=== PATIENT | female | born 1975 | race Caucasian/White ===

== ENCOUNTER → 2021-09-25 | Outpatient (CLI) | payer OTHER ==
[2021-09-25 18:48] LABS: BASOPHILS ABSOLUTE AUTO 0.03 K/mm3 (0.00-0.23); BASOPHILS PERCENT AUTO 1 % (0-2); EOSINOPHILS ABSOLUTE AUTO 0.08 K/mm3 (0.00-0.68); EOSINOPHILS PERCENT AUTO 1 % (0-6); Hematocrit 46.2 % (33.0-51.0); Hemoglobin 15.5 g/dL (11.5-16.0); IMMATURE GRAN ABSOLUTE AUTO 0.01 K/mm3 (0.00-0.10); IMMATURE GRAN PERCENT AUTO 0 % (0-1); LYMPHOCYTES ABSOLUTE AUTO 1.75 K/mm3 (0.84-5.20); LYMPHOCYTES PERCENT AUTO 30 % (21-46); MONOCYTES ABSOLUTE AUTO 0.84 K/mm3 (0.16-1.47); MONOCYTES PERCENT AUTO 15 % (4-13); Mean Corpuscular HGB 27.8 pg (26.0-34.0); Mean Corpuscular HGB Conc 33.5 g/dL (31.5-36.5); Mean Corpuscular Volume 83 fL (80-100); Mean Platelet Volume 9.8 fL (9.1-12.4); NEUTROPHILS ABSOLUTE AUTO 3.07 K/mm3 (1.96-9.15); NEUTROPHILS PERCENT AUTO 53 % (41-73); Platelet Count 300 K/mm3 (150-400); RDW Coefficient Variation 13.7 % (11.7-14.2); RDW Standard Deviation 41.2 fL (35.1-46.3); Red Blood Cell Count 5.57 M/mm3 (3.80-5.20); White Blood Cell Count 5.78 K/mm3 (4.00-11.30)
[2021-09-25 18:57] LABS: Anion Gap 10 mmol/L (6-16); Blood Urea Nitrogen 8 mg/dL (8-24); Bun/Creatinine Ratio 9.5 (12.0-20.0); CO2, Blood 27 mmol/L (21-32); Calcium, Blood 8.9 mg/dL (8.5-10.1); Chloride, Blood 99 mmol/L (98-108); Creatinine, Blood 0.84 mg/dL (0.40-1.00); Glomerular Filtration Rate >60 (60-); Glucose, Blood 97 mg/dL (70-99); Potassium, Blood 3.7 mmol/L (3.5-5.5); Sodium, Blood 136 mmol/L (136-145)
== END | disposition home or self-care (01) ==
LOC: LAB SHORT 18:45
PROVIDERS: Physician Assistant Surgical
DX: R07.89 Other chest pain (principal)
CPT/HCPCS: 80048; 84484; 85025; 85379

== ENCOUNTER 2022-06-14 14:45 | Emergency (ER) | payer OTHER ==
[~2022-06-14] VITALS: Ht 160 cm; Wt 94.8 kg
[2022-06-14] MEDS ORDERED: Hydroxyzine HCl50 MG (16:31)
== END 2022-06-14 15:52 | disposition home or self-care (01) ==
LOC: ER 14:45
DX: S20.212A Contusion of left front wall of thorax, initial encounter (principal); X50.1XXA Overexertion from prolonged static or awkward postures, initial encounter; Z88.0 Allergy status to penicillin; Z88.8 Allergy status to other drugs, medicaments and biological substances; Z88.1 Allergy status to other antibiotic agents; Z91.041 Radiographic dye allergy status
CPT/HCPCS: 71101

== ENCOUNTER → 2023-05-13 | Outpatient (CLI) | payer OTHER ==
[~2023-05-13] MED LIST: Hydroxyzine HCl50 MG
[2023-05-13 20:18] LABS: Campylobacter Sp Not Detected (NOT DETECT)
[2023-05-13 20:19] LABS: Adenovirus F 40/41 Not Detected (NOT DETECT); Astrovirus Not Detected (NOT DETECT); Cryptosporidium Not Detected (NOT DETECT); Cyclospora Cayetanensis Not Detected (NOT DETECT); E. Coli O157 Not Detected (NOT DETECT); Entamoeba Histolytica Not Detected (NOT DETECT); Enteroaggregative E. coli-EAEC Not Detected (NOT DETECT); Enteropathogenic E. coli-EPEC Not Detected (NOT DETECT); Enterotoxigenic E. coli-ETEC Not Detected (NOT DETECT); Giardia Lamblia Not Detected (NOT DETECT); Norovirus GI/GII Not Detected (NOT DETECT); Plesiomonas Shigelloides Not Detected (NOT DETECT); Rotavirus A Not Detected (NOT DETECT); Salmonella Sp Not Detected (NOT DETECT); Sapovirus Not Detected (NOT DETECT); Shiga Toxin-prod E. coli-STEC Not Detected (NOT DETECT); Shigella/Enteroin E. coli-EIEC Not Detected (NOT DETECT); Vibrio Cholerae Not Detected (NOT DETECT); Vibrio Sp Not Detected (NOT DETECT); Yersinia Enterocolitica Not Detected (NOT DETECT)
== END ==
LOC: LAB 14:39 → LAB SHORT 14:39
PROVIDERS: Physician Assistant Medical
DX: R11.2 Nausea with vomiting, unspecified (principal); R19.7 Diarrhea, unspecified
CPT/HCPCS: 87507

== ENCOUNTER 2023-07-15 20:58 | Emergency (ER) | payer BC ==
[~2023-07-15] VITALS: Ht 160 cm; Wt 89.8 kg
[2023-07-15 21:12] VITALS: BP 156/99
[2023-07-15 21:30] LABS: BASOPHILS ABSOLUTE AUTO 0.05 K/mm3 (0.00-0.23); BASOPHILS PERCENT AUTO 1 % (0-2); EOSINOPHILS ABSOLUTE AUTO 0.37 K/mm3 (0.00-0.68); EOSINOPHILS PERCENT AUTO 4 % (0-6); Hematocrit 44.3 % (33.0-51.0); Hemoglobin 14.7 g/dL (11.5-16.0); IMMATURE GRAN ABSOLUTE AUTO 0.02 K/mm3 (0.00-0.10); IMMATURE GRAN PERCENT AUTO 0 % (0-1); LYMPHOCYTES ABSOLUTE AUTO 2.45 K/mm3 (0.84-5.20); LYMPHOCYTES PERCENT AUTO 27 % (21-46); MONOCYTES ABSOLUTE AUTO 0.77 K/mm3 (0.16-1.47); MONOCYTES PERCENT AUTO 9 % (4-13); Mean Corpuscular HGB 28.7 pg (26.0-34.0); Mean Corpuscular HGB Conc 33.2 g/dL (31.5-36.5); Mean Corpuscular Volume 86 fL (80-100); Mean Platelet Volume 11.2 fL (9.1-12.4); NEUTROPHILS ABSOLUTE AUTO 5.28 K/mm3 (1.96-9.15); NEUTROPHILS PERCENT AUTO 59 % (41-73); Platelet Count 292 K/mm3 (150-400); RDW Coefficient Variation 13.2 % (11.7-14.2); RDW Standard Deviation 41.9 fL (35.1-46.3); Red Blood Cell Count 5.13 M/mm3 (3.80-5.20); White Blood Cell Count 8.94 K/mm3 (4.00-11.30)
[2023-07-15 21:48] LABS: Albumin, Blood 3.4 g/dL (3.4-5.0); Bilirubin, Total 0.4 mg/dL (0.1-1.0); Bun/Creatinine Ratio 12.6 (12.0-20.0); Calcium, Blood 8.9 mg/dL (8.5-10.1); Creatinine, Blood 0.71 mg/dL (0.40-1.00); Globulin, Blood 3.5 g/dL (2.2-4.0); Potassium, Blood 3.7 mmol/L (3.5-5.5); Total Protein, Blood 6.9 g/dL (6.4-8.2)
[2023-07-15 23:48] LABS: Bilirubin, Urine Neg (Neg); Blood, Urine Neg (Neg); Glucose Qualitative, Urine Neg (Neg); Ketones, Urine 1+ (Neg); Leukocyte Esterase, Urine Neg (Neg); Nitrite, Urine Neg (Neg); Protein, Urine 1+ (Neg); Source, Urine Clean Catch; Specific Gravity, Urine 1.025 (1.003-1.022); Urobilinogen, Urine NORM (Normal)
[2023-07-16 00:12] LABS: Appearance, Urine Clear (Clear); Color, Urine Yellow (P-Yellow)
== END 2023-07-16 02:22 | disposition home or self-care (01) ==
LOC: ER 20:58
PROVIDERS: Student in an Organized Health Care Education/Training Program
DX: R10.32 Left lower quadrant pain (principal); R10.31 Right lower quadrant pain; R10.12 Left upper quadrant pain; Z88.0 Allergy status to penicillin; Z88.1 Allergy status to other antibiotic agents; Z91.041 Radiographic dye allergy status; Z88.8 Allergy status to other drugs, medicaments and biological substances; Z79.899 Other long term (current) drug therapy
CPT/HCPCS: 80053; 85025; 96374; 99284-25; J2405

== ENCOUNTER → 2023-08-10 | Outpatient (CLI) | payer BC | END | disposition home or self-care (01) | LOC: LAB SHORT 14:42 → LAB 14:42 | DX: R14.0 Abdominal distension (gaseous) (principal) | CPT/HCPCS: 86304 ==

== ENCOUNTER 2023-09-02 08:48 | Day surgery (SDC) | payer BC ==
[~2023-09-02] VITALS: Ht 160 cm; Wt 87.3 kg
[~2023-09-02 08:48] MED LIST changes: +MAGNESIUM OXID500 MG PO; +POLY500 PO
[2023-09-02] MEDS ORDERED: ONDA4 PO (09:12)
[2023-09-02 09:18] VITALS: BP 112/90
--- NOTE | 2023-09-02 09:28 | NUR ---
History, Chart, Medications and Allergies reviewed before start of procedure. Lungs clear T/O to Auscultation. Patient confirms NPO status and agrees with scheduled surgery. Pre-Op teaching done. Pt verbalizes understanding. Patient States Post-Procedure ride home has been arranged. Patient states colon prep results clear.
--- NOTE | 2023-09-02 10:41 | NUR ---
09/02/23 1041 Casey Chaves History, Chart, Medications and Allergies reviewed before start of procedure. MONITOR INTACT WITH CONTINUOUS PULSE OXIMETRY, CONTINUOUS END TITAL CO2, AND INTERMITTENT BLOOD PRESSURE. 3-LEAD EKG REVIEWED WITH PHYSICIAN PRIOR TO START OF PROCEDURE. O2 VIA N/C INTACT THROUGHOUT SEDATION/PROCEDURE. See Anesthesia record, DR ROCK.
[2023-09-02 11:15] VITALS: BP 160/100
[2023-09-02 11:20] VITALS: BP 138/68
[2023-09-02 11:40] VITALS: BP 129/88
[2023-09-02 11:45] VITALS: BP 137/94
--- NOTE | 2023-09-02 11:53 | NUR ---
DISCHARGE NOTE Discharge instructions reviewed with patient. Patient verbalizes understanding. Copy given to patient to take home. Patient up to Ambulate independently. Gait steady. Discharged via wheelchair to private car for ride home with DC instructions in hand.
== END 2023-09-02 23:12 | disposition home or self-care (01) ==
LOC: ORSCMMR 08:48 → ORD 10:15 → ORSCMMR 23:12
PROVIDERS: Internal Medicine Gastroenterology
PROC: 0DB78ZX Excision of Stomach, Pylorus, Via Natural or Artificial Opening Endoscopic, Diagnostic (ICD-10-PCS; principal; 2023-09-02 10:15)
PROC: 0DBN8ZX Excision of Sigmoid Colon, Via Natural or Artificial Opening Endoscopic, Diagnostic (ICD-10-PCS; principal; 2023-09-02 10:15)
PROC: 0DB48ZX Excision of Esophagogastric Junction, Via Natural or Artificial Opening Endoscopic, Diagnostic (ICD-10-PCS; principal; 2023-09-02 10:15)
PROC: 0DBL8ZX Excision of Transverse Colon, Via Natural or Artificial Opening Endoscopic, Diagnostic (ICD-10-PCS; principal; 2023-09-02 10:15)
PROC: 0DB98ZX Excision of Duodenum, Via Natural or Artificial Opening Endoscopic, Diagnostic (ICD-10-PCS; principal; 2023-09-02 10:15)
DX: R10.13 Epigastric pain (principal); R19.4 Change in bowel habit; Z86.010 Personal history of colon polyps; Z80.0 Family history of malignant neoplasm of digestive organs; D12.3 Benign neoplasm of transverse colon; K63.5 Polyp of colon; G47.33 Obstructive sleep apnea (adult) (pediatric); Z68.36 Body mass index [BMI] 36.0-36.9, adult; I10 Essential (primary) hypertension; Z68.34 Body mass index [BMI] 34.0-34.9, adult; Z79.899 Other long term (current) drug therapy
CPT/HCPCS: 88305; 88342; A9270; J2704; J7120

== ENCOUNTER 2024-11-14 16:28 | Emergency (ER) | payer BC ==
[~2024-11-14] VITALS: Ht 160 cm; Wt 90.7 kg
[~2024-11-14 16:28] MED LIST changes: +ONDA4 PO
[2024-11-14] MEDS ORDERED: Morphine Sulfate 4 MG/1 ML Injection IV ONE (16:40)
[2024-11-14] MEDS ORDERED: Ketorolac Tromethamine 30mg Vial IV ONE (16:40)
[2024-11-14] MEDS ORDERED: Ondansetron HCl 2 MG / ML 2ML Vial IV ONE (16:40)
[2024-11-14 17:10] LABS: BASOPHILS ABSOLUTE AUTO 0.05 K/mm3 (0.00-0.23); BASOPHILS PERCENT AUTO 1 % (0-2); EOSINOPHILS ABSOLUTE AUTO 0.42 K/mm3 (0.00-0.68); EOSINOPHILS PERCENT AUTO 5 % (0-6); Hematocrit 48.3 % (33.0-51.0); IMMATURE GRAN ABSOLUTE AUTO 0.02 K/mm3 (0.00-0.10); IMMATURE GRAN PERCENT AUTO 0 % (0-1); LYMPHOCYTES ABSOLUTE AUTO 2.86 K/mm3 (0.84-5.20); LYMPHOCYTES PERCENT AUTO 33 % (21-46); MONOCYTES ABSOLUTE AUTO 0.75 K/mm3 (0.16-1.47); MONOCYTES PERCENT AUTO 9 % (4-13); Mean Corpuscular HGB 27.9 pg (26.0-34.0); Mean Corpuscular HGB Conc 33.1 g/dL (31.5-36.5); Mean Corpuscular Volume 84 fL (80-100); Mean Platelet Volume 10.6 fL (9.1-12.4); NEUTROPHILS ABSOLUTE AUTO 4.65 K/mm3 (1.96-9.15); NEUTROPHILS PERCENT AUTO 53 % (41-73); Platelet Count 355 K/mm3 (150-400); RDW Standard Deviation 42.8 fL (35.1-46.3); Red Blood Cell Count 5.74 M/mm3 (3.80-5.20); White Blood Cell Count 8.75 K/mm3 (4.00-11.30)
[2024-11-14 17:45] LABS: Albumin, Blood 3.8 g/dL (3.4-5.0); Albumin/Globulin Ratio 1.1 (0.8-1.8); Bilirubin, Total 0.5 mg/dL (0.1-1.0); Bun/Creatinine Ratio 19.4 (12.0-20.0); Calcium, Blood 9.7 mg/dL (8.5-10.1); Creatinine, Blood 0.67 mg/dL (0.40-1.00); Globulin, Blood 3.5 g/dL (2.2-4.0); Potassium, Blood 3.9 mmol/L (3.5-5.5); Total Protein, Blood 7.3 g/dL (6.4-8.2)
[2024-11-14 17:57] LABS: Source, Urine Voided
[2024-11-14 18:09] LABS: Appearance, Urine Clear (Clear); Bilirubin, Urine Neg (Neg); Blood, Urine 1+ (Neg); Color, Urine Yellow (P-Yellow); Glucose Qualitative, Urine Neg (Neg); Ketones, Urine Neg (Neg); Leukocyte Esterase, Urine Neg (Neg); Nitrite, Urine Neg (Neg); Protein, Urine 2+ (Neg); Urobilinogen, Urine NORM (Normal)
[2024-11-14 19:08] LABS: White Blood Cells, Urine 0-2 /hpf (0-5)
[2024-11-14 19:09] LABS: Bacteria Rare /hpf; Squamous Epithelial Cells Few /hpf (Few)
[2024-11-14] MEDS ORDERED: HYDROmorphone HCl/Pf 1MG SYR IV ONE (19:30)
[2024-11-14] MEDS ORDERED: LORazepam 2 MG/ML 1ML Injection IV ONE (20:00)
[2024-11-14] MEDS ORDERED: METPRE4DP PO (20:41)
[2024-11-14] MEDS ORDERED: Valium5 MG PO (20:41)
[2024-11-14] MEDS ORDERED: OXAYDO5 M1 PO (20:41)
[2024-11-14 20:45] VITALS: BP 116/77
== END 2024-11-14 20:58 | disposition home or self-care (01) ==
LOC: ER 16:28
PROVIDERS: Emergency Medicine
DX: M54.14 Radiculopathy, thoracic region (principal); Z88.8 Allergy status to other drugs, medicaments and biological substances; Z91.041 Radiographic dye allergy status; Z88.0 Allergy status to penicillin; Z88.1 Allergy status to other antibiotic agents; Z91.040 Latex allergy status
CPT/HCPCS: 74176; 80053; 81001; 83690; 85025; 96374; 96375; 99284-25; J1171; J1885; J2060; J2270; J2405

== ENCOUNTER 2025-03-28 08:28 | Emergency (ER) | payer BC ==
[~2025-03-28] VITALS: Ht 160 cm; Wt 94.8 kg
[~2025-03-28 08:28] MED LIST changes: +METPRE4DP PO; +OXAYDO5 M1 PO; +Valium5 MG PO
[2025-03-28 09:04] VITALS: BP 119/90
[2025-03-28] MEDS ORDERED: HYDROmorphone HCl/Pf 1MG SYR IM ONE (09:15)
[2025-03-28] MEDS ORDERED: Ondansetron HCl 2 MG / ML 2ML Vial IV ONE (09:30)
[2025-03-28] MEDS ORDERED: HYDROcodone 5-APAP 325 TAB PO ONE (10:55)
[2025-03-28] MEDS ORDERED: Robaxin750 MG PO (10:56)
[2025-03-28] MEDS ORDERED: Norco 5-325 Ta1 EACH PO (10:56)
== END 2025-03-28 11:16 | disposition home or self-care (01) ==
LOC: ER 08:28
DX: M54.9 Dorsalgia, unspecified (principal); W11.XXXA Fall on and from ladder, initial encounter; Z88.8 Allergy status to other drugs, medicaments and biological substances; Z88.2 Allergy status to sulfonamides; Z88.1 Allergy status to other antibiotic agents; Z88.0 Allergy status to penicillin; Z91.040 Latex allergy status; Z79.899 Other long term (current) drug therapy
CPT/HCPCS: 72125; 72128; 73030; 96372-59; 96374; 99284-25; A9270; J1171; J2405

== ENCOUNTER 2025-04-12 10:22 | Day surgery (SDC) | payer BC ==
[~2025-04-12] VITALS: Ht 160 cm; Wt 97.1 kg
[~2025-04-12 10:22] MED LIST changes: +EPINEPhrine HCl 1 MG / ML 30ML Vial ONE; +Lidocaine 2%-Epineph 1:200000 20 ML SDV ONE; +Norco 5-325 Ta1 EACH PO; +Robaxin750 MG PO; +Tranexamic Acid 100 ML IV ONE
[2025-04-12] MEDS ORDERED: NEURONTIN300 MG PO (10:47)
[2025-04-12] MEDS ORDERED: PRED20 PO (10:49)
[2025-04-12] MEDS ORDERED: Methocarbamol500 MG PO (10:49)
[2025-04-12] MEDS ORDERED: Robaxin750 MG PO (10:51)
[2025-04-12] MEDS ORDERED: CLAR500 (10:52)
[2025-04-12] MEDS ORDERED: Midazolam HCl 1MG / ML 2ML Vial ONE (11:02)
--- NOTE | 2025-04-12 11:35 | NUR ---
04/12/25 2949 MINERVA RAMIREZ PT STATES SHE HAS SEIZURES DURING STRESSFUL TIMES LIKE HARD IV STARTS. JANUARY 2025 GRAND MAL SEIZURE PRIOR TOHER LAST SURGERY AND IT WAS CANCELLED.
[2025-04-12] MEDS ORDERED: FentaNYL Citrate 50 MCG/ML 2 ML Injection ONE (11:40)
[2025-04-12] MEDS ORDERED: Rocuronium Bromide 10 MG/ML 5ML Injection IV ONE (11:45)
[2025-04-12] MEDS ORDERED: Dexamethasone Sod Phos 10 MG/ML 1ML VIAL ONE (11:45)
[2025-04-12] MEDS ORDERED: Ondansetron HCl 2 MG / ML 2ML Vial ONE ×2 (11:45→14:14)
[2025-04-12] MEDS ORDERED: Ketorolac Tromethamine 30mg Vial ONE (11:47)
--- NOTE | 2025-04-12 12:07 | NUR ---
04/12/25 1207 Silvia Martinez SINGLE DOSE OF TXA GIVEN IN OR BY ANESTHESIA AT 1136
[2025-04-12] MEDS ORDERED: Sugammadex Sodium 200 MG/2ML SDV (100 MG/ML) ONE (13:05)
--- NOTE | 2025-04-12 13:43 | NUR ---
04/12/25 1343 Cueva,Oscar PT AWAKE ORIENTATED. O2 96% ON RA, VSS.
[2025-04-12 14:25] VITALS: BP 136/99
--- NOTE | 2025-04-12 14:26 | NUR ---
04/12/25 1426 Oscar Cueva ADMINISTERED ZOFRAN 4 MG IV FOR NAUSEA PER ANESTHESIA ORDERS
== END 2025-04-12 15:06 | disposition home or self-care (01) ==
LOC: ORSCSDS 10:22
PROVIDERS: Otolaryngology
PROC: 09BL4ZZ Excision of Nasal Turbinate, Percutaneous Endoscopic Approach (ICD-10-PCS; principal; 2025-04-12 12:00)
PROC: 09BR4ZZ Excision of Left Maxillary Sinus, Percutaneous Endoscopic Approach (ICD-10-PCS; principal; 2025-04-12 12:00)
PROC: 09BQ4ZZ Excision of Right Maxillary Sinus, Percutaneous Endoscopic Approach (ICD-10-PCS; principal; 2025-04-12 12:00)
PROC: 09SM0ZZ Reposition Nasal Septum, Open Approach (ICD-10-PCS; principal; 2025-04-12 12:00)
PROC: 8E09XBZ Computer Assisted Procedure of Head and Neck Region (ICD-10-PCS; principal; 2025-04-12 12:00)
DX: J32.8 Other chronic sinusitis (principal); J34.2 Deviated nasal septum; J34.89 Other specified disorders of nose and nasal sinuses; I10 Essential (primary) hypertension; G47.33 Obstructive sleep apnea (adult) (pediatric); R56.9 Unspecified convulsions; Z79.899 Other long term (current) drug therapy; J45.909 Unspecified asthma, uncomplicated
CPT/HCPCS: 88305; A9270; J0165; J1100; J1885; J2250; J2405; J2704; J3010; J7120